=== PATIENT | male | born 1980 | race Caucasian/White ===

== ENCOUNTER 2017-05-18 22:03 | Emergency (ER) | payer BC ==
[2017-05-18 22:11] VITALS: BP 134/68; PULSE 69; RESP 18; TEMP 97
[2017-05-18] MEDS ORDERED: ACETAMINOPHEN TAB 500 MG TAB PO STA (22:17)
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
--- NOTE | 2017-05-18 22:47 | XR ---
EXAM: XR Right Wrist Complete, 3 or More Views CLINICAL HISTORY: Reason: Pain TECHNIQUE: Frontal, lateral and oblique views of the right wrist. COMPARISON: No relevant prior studies available. FINDINGS: Bones/joints: No acute fracture or malalignment. Nonspecific focal lucency in the medullary space of the distal right ulnar diaphysis. Soft tissues: Unremarkable. No radiopaque foreign body. IMPRESSION: No acute fracture or malalignment.
== END 2017-05-18 23:00 | disposition home or self-care (01) ==
LOC: EC 22:03
DX: M25.531 Pain in right wrist (principal)
CPT/HCPCS: 99283

== ENCOUNTER 2017-07-29 14:04 | Emergency (ER) | payer BC, OTHER ==
[2017-07-29] MEDS ORDERED: DIPH,PERTUS(ACELL)TETVAC-LF 0.5 ML VIAL IM ONE (15:05)
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
[2017-07-29 15:18] VITALS: BP 122/60; PULSE 92; RESP 20; TEMP 97.8
[2017-07-29 20:27] LABS: Hepatitis B Surface Antibody Reactive (Non-Reactive)
== END 2017-07-29 15:27 | disposition home or self-care (01) ==
LOC: EC 14:04
DX: S00.511A Abrasion of lip, initial encounter (principal); Z23 Encounter for immunization; Z79.899 Other long term (current) drug therapy; Z91.010 Allergy to peanuts; Y04.0XXA Assault by unarmed brawl or fight, initial encounter
CPT/HCPCS: 36415; 86706; 86803; 87340; 87390; 90471; 90715; 99283

== ENCOUNTER → 2020-05-27 | Outpatient (CLI) | payer BC | END | disposition home or self-care (01) | LOC: LABWHC1 13:06 | PROVIDERS: ATTEND Pathology Anatomic Pathology & Clinical Pathology | DX: Z53.9 Procedure and treatment not carried out, unspecified reason (principal) ==

== ENCOUNTER 2020-11-09 21:07 | Emergency (ER) | payer BC ==
[2020-11-09 21:11] VITALS: BP 178/79; PULSE 71; RESP 20; TEMP 99
--- NOTE | 2020-11-09 21:45 | XR ---
EXAMINATION TYPE: XR hand complete RT DATE OF EXAM: 11/09/2020 COMPARISON: NONE HISTORY: Pain. TECHNIQUE: 3 views FINDINGS: There is comminuted slightly impacted transverse fracture of the distal fifth metacarpal. T here is mild posterior angulation at the fracture site. There is no dislocation. The fingers appear i ntact. Carpal bones are intact. IMPRESSION: Acute fracture distal fifth metacarpal.
--- NOTE | 2020-11-09 21:47 | XR ---
EXAMINATION TYPE: XR wrist complete RT DATE OF EXAM: 11/09/2020 COMPARISON: 05/18/2017 HISTORY: Pain TECHNIQUE: 4 views FINDINGS: Carpal bones are intact. Joint spaces are normal. I see no fracture nor dislocation. The ra diocarpal joint appears normal. IMPRESSION: Negative right wrist exam. No change.
--- NOTE | 2020-11-09 22:20 | ED ---
Upper Extremity HPI - General Chief Complaint: Extremity Injury, Upper Stated Complaint: Rt hand injury Time Seen by Provider: 11/09/20 21:12 Source: patient Mode of arrival: ambulatory Limitations: no limitations - History of Present Illness Initial Comments: 40-year-old male presenting today for chief complaint of right hand pain after punching a table. Patient states he became frustrated and punched a table. He states he noticed a lump near his fifth digit of the right mid hand. Patient states he has noted difficulties with range of motion of the digits he states is painful he denies decreased strength or sensation deficits. Patient denies any other areas of injury denies punching another person Lacerations or abrasions. Patient appears well nontoxic distress he states he has very slight ulnar aspect wrist pain he denies any elbow or shoulder pain MD Complaint: Injury to:: right, hand - Related Data Home Medications Medication Instructions Recorded Confirmed No Known Home Medications 11/09/20 11/09/20 Allergies Allergy/AdvReac Type Severity Reaction Status Date / Time peanut Allergy Unknown Verified 11/09/20 21:57 Review of Systems ROS Statement: Those systems with pertinent positive or pertinent negative responses have been documented in the HPI. ROS Other: All systems not noted in ROS Statement are negative. Past Medical History Past Medical History: Diabetes Mellitus Additional Past Medical History / Comment(s): gout History of Any Multi-Drug Resistant Organisms: None Reported Past Surgical History: No Surgical Hx Reported Additional Past Surgical History / Comment(s): VASECTOMY AND VASECTOMY REVERSAL Past Psychological History: No Psychological Hx Reported Smoking Status: Never smoker Past Alcohol Use History: Occasional Past Drug Use History: None Reported General Exam - General Exam Comments Initial Comments: General: The patient is awake and alert, in no distress Eye: +3 mm pupils are equal, round and reactive to light, extra-ocular movements are intact. No nystagmus. There is normal conjunctiva bilaterally. No signs of icterus. Ears, nose, mouth and throat: There are moist mucous membranes and no oral lesions. Neck: The neck is supple, there is no tenderness or JVD. Cardiovascular: There is a regular rate and rhythm. No murmur, rub or gallop is appreciated. Respiratory: Lungs are clear to auscultation, respirations are non-labored, breath sounds are equal. No wheezes, stridor, rales, or rhonchi. Gastrointestinal: Soft, non-distended, non-tender abdomen without masses or organomegaly noted. There is no rebound or guarding present. Musculoskeletal: plan 6 of the right hand there is no ecchymosis but there is soft tissue swelling mid fifth metacarpal. She is able fully range at the MCP DIP and PIP joints of all 5 digits of the right hand noted decrease in strength sensation intact proximal and distal to injury site capillary refill less than 3 seconds there is no anatomical snuffbox tenderness some very vague tenderness at the metacarpal/carpal ulnar aspect of wrist/proximal hand. Radial pulses equal bilaterally 2+. Neurological: A&O x 3. CN II-XII intact grossly, There are no obvious motor or sensory deficits. Coordination appears grossly intact. Speech is normal. Skin: Skin is warm and dry and no rashes or lesions are noted. Psychiatric: Cooperative, appropriate mood & affect, normal judgment. Limitations: no limitations Course Vital Signs 11/09/20 21:08 Temperature 99 F Pulse Rate 71 Respiratory 20 Rate Blood Pressure 178/79 O2 Sat by Pulse 97 Oximetry Medical Decision Making - Medical Decision Making 40yo male presenting for cc of right hand pain after punching table. fracture with angulation of the 5th metacarpal. reviewed imaging studies with attending Dr Mccall. pt vascular intact. At this time patient was splinted with a short arm fiberglass pre-patted synthetic splint material an Med bandage neurovascular exam after splinting was intact no change. pt discharged with orthopedic f/u. recommend work clearance by specialist before return. Disposition Clinical Impression: Closed fracture of 5th metacarpal, Right hand pain Disposition: HOME SELF-CARE Condition: Good Instructions (If sedation given, give patient instructions): Hand Fracture (ED) Additional Instructions: Please use medication as discussed. Please follow-up with orthopedic surgery in the next 2 days.. Please return to emergency room if the symptoms increase or worsen or for any other concerns. Is patient prescribed a controlled substance at d/c from ED?: No Referrals: Lamont Lizama MD [Primary Care Provider] - 1-2 days Michele Gregg MD [STAFF PHYSICIAN] - 1-2 days Time of Disposition: 22:19
== END 2020-11-09 22:23 | disposition home or self-care (01) ==
LOC: EC 21:07
DX: S62.306A Unspecified fracture of fifth metacarpal bone, right hand, initial encounter for closed fracture (principal); Z91.010 Allergy to peanuts; W22.03XA Walked into furniture, initial encounter
CPT/HCPCS: 29125; 99283

== ENCOUNTER → 2023-02-24 | Outpatient (CLI) | payer BC | END | disposition home or self-care (01) | LOC: LABWHC1 12:33 | PROVIDERS: ATTEND Obstetrics & Gynecology Reproductive Endocrinology | DX: Z01.812 Encounter for preprocedural laboratory examination (principal) | CPT/HCPCS: 36415; 86850; 86900; 86901 ==

== ENCOUNTER 2023-11-30 23:11 | Emergency (ER) | payer OTHER, BC ==
[2023-11-30 23:40] VITALS: BP 147/101; PULSE 103; TEMP 98.1
[2023-12-01 01:31] VITALS: RESP 17
[2023-12-01 09:48] LABS: Hepatitis B Surface Antigen Nonreactive; Hepatitis C IgG Antibody Nonreactive
[2023-12-01 14:15] LABS: HIV 2 AB Non-Reactive (Non-Reactive); HIV AB P24 Non-Reactive (Non-Reactive); HIV P24 AG Non-Reactive (Non-Reactive)
== END 2023-12-01 01:29 | disposition home or self-care (01) ==
LOC: EC 23:11
DX: Z01.812 Encounter for preprocedural laboratory examination (principal)
CPT/HCPCS: 36415; 86704; 86706; 86803; 87340; 87390